=== PATIENT | male | born 1960 | race Caucasian/White ===

== ENCOUNTER 2020-03-06 12:14 | Inpatient (IN) | payer OTHER ==
[~2020-03-06] VITALS: Ht 170.2 cm; Wt 110.2 kg
[2020-03-06 12:15] VITALS: Ht 170.2 cm; Wt 110.2 kg
[2020-03-06 13:26] LABS: PLATELET COUNT 179 x10^3mcL (130-400); RED CELL DISTRIBUTION WIDTH 12.6 % (11.5-14.5)
[2020-03-06 13:33] LABS: BILIRUBIN TOTAL 0.38 mg/dL (0.20-1.00); C REACTIVE PROTEIN 6.1 mg/dL (<=0.9); CALCIUM 7.7 mg/dL (8.5-10.1); CREATININE SERUM 2.6 mg/dL (0.7-1.3); POTASSIUM SERUM 3.9 mmol/L (3.5-5.1)
[2020-03-06 13:34] LABS: TOTAL PROTEIN, SERUM 5.9 g/dL (6.4-8.2)
[2020-03-06] MEDS ORDERED: LOSARTAN POTAS100 M1 PO (15:22)
[2020-03-06] MEDS ORDERED: COR6 PO (15:23)
[2020-03-06] MEDS ORDERED: HYDRALAZINE HCL25 MG PO (15:24)
[2020-03-06] MEDS ORDERED: FERROUS SULFAT325 M2 PO (15:25)
[2020-03-06] MEDS ORDERED: LASIX20 MG PO (15:25)
[2020-03-06] MEDS ORDERED: SYNTHROID25 MCG PO (15:25)
[2020-03-06] MEDS ORDERED: ATORVASTATIN CA40 M1 PO (15:26)
[2020-03-06 15:57] LABS: MAGNESIUM 1.7 mg/dL (1.8-2.4); PHOSPHOROUS 2.7 mg/dL (2.5-4.9)
[2020-03-06 15:59] LABS: CHOLESTEROL/HDL RATIO 2.7
[2020-03-06 16:02] LABS: FREE T4 1.2 ng/dL (0.76-1.46); T4(THYROXINE) 8.5 ug/dL (4.7-13.3)
[2020-03-06 16:05] LABS: T3 TOTAL 0.65 ng/mL
[2020-03-06 16:09] VITALS: BP 169/76
[2020-03-06 16:29] VITALS: BP 169/76
[2020-03-06 22:18] VITALS: BP 141/75
[2020-03-07] VITALS (7 sets, daily range): BP systolic 125–188; BP diastolic 69–84
[2020-03-07 07:42] LABS: PLATELET COUNT 190 x10^3mcL (130-400); RED CELL DISTRIBUTION WIDTH 12.8 % (11.5-14.5)
[2020-03-07 08:04] LABS: BILIRUBIN TOTAL 0.3 mg/dL (0.20-1.00); CALCIUM 7.5 mg/dL (8.5-10.1); CARBON DIOXIDE 18.7 mmol/L (21-32); CREATININE SERUM 2.4 mg/dL (0.7-1.3); POTASSIUM SERUM 3.8 mmol/L (3.5-5.1)
[2020-03-07 08:06] LABS: ALBUMIN 1.9 g/dL (3.4-5.0); TOTAL PROTEIN, SERUM 6.1 g/dL (6.4-8.2)
[2020-03-07 09:57] LABS: BAND NEUTROPHIL 2 % (0-10); SEGMENTED NEUTROPHILS 58 % (37-75)
[2020-03-07 10:00] LABS: MONOCYTE 10 % (0-7); rbc morphology (normal/abnorm) NORMAL (NORMAL)
[2020-03-08 05:43] VITALS: BP 161/73
[2020-03-08 06:39] LABS: PLATELET COUNT 240 x10^3mcL (130-400); RED CELL DISTRIBUTION WIDTH 12.5 % (11.5-14.5)
[2020-03-08 07:11] LABS: BASOPHIL % 0 % (0-2)
[2020-03-08 07:21] LABS: BILIRUBIN DIRECT 0.05 mg/dL (0.0-0.2); BILIRUBIN TOTAL 0.3 mg/dL (0.20-1.00); C REACTIVE PROTEIN 3.7 mg/dL (<=0.9); CALCIUM 7.6 mg/dL (8.5-10.1); CARBON DIOXIDE 17.6 mmol/L (21-32); CREATININE SERUM 2.2 mg/dL (0.7-1.3); POTASSIUM SERUM 3.8 mmol/L (3.5-5.1)
[2020-03-08 07:29] LABS: ALBUMIN 1.8 g/dL (3.4-5.0); TOTAL PROTEIN, SERUM 5.7 g/dL (6.4-8.2)
[2020-03-08 08:37] VITALS: BP 162/85
[2020-03-08 12:06] VITALS: BP 121/79
[2020-03-08 15:31] VITALS: BP 147/70
[2020-03-08 21:00] VITALS: BP 158/69
[2020-03-09 06:30] VITALS: BP 166/78
[2020-03-09 07:34] LABS: BILIRUBIN DIRECT 0.07 mg/dL (0.0-0.2); BILIRUBIN TOTAL 0.3 mg/dL (0.20-1.00)
[2020-03-09 07:37] LABS: TOTAL PROTEIN, SERUM 6.1 g/dL (6.4-8.2)
[2020-03-09 08:00] VITALS: BP 146/67
[2020-03-09 13:12] VITALS: BP 123/81
[2020-03-09 17:10] VITALS: BP 152/74
[2020-03-09 20:06] VITALS: BP 161/77
[2020-03-10 05:17] VITALS: BP 157/78
[2020-03-10 07:37] LABS: BILIRUBIN DIRECT 0.06 mg/dL (0.0-0.2); BILIRUBIN TOTAL 0.2 mg/dL (0.20-1.00)
[2020-03-10 07:39] LABS: TOTAL PROTEIN, SERUM 4.9 g/dL (6.4-8.2)
[2020-03-10 07:40] LABS: ALBUMIN 1.9 g/dL (3.4-5.0)
[2020-03-10 12:25] VITALS: BP 148/74
[2020-03-10 16:20] VITALS: BP 163/74
[2020-03-10 20:05] VITALS: BP 149/79
[2020-03-11 04:28] LABS: AMPHETAMINE QUAL UR NONE DETECTED (See below)
[2020-03-11 04:41] LABS: microscopic required? YES; urine erythrocyte TRACE (NEGATIVE)
[2020-03-11 06:07] VITALS: BP 154/73
[2020-03-11 06:41] LABS: BILIRUBIN DIRECT 0.07 mg/dL (0.0-0.2); BILIRUBIN TOTAL 0.24 mg/dL (0.20-1.00)
[2020-03-11 06:44] LABS: ALBUMIN 1.8 g/dL (3.4-5.0); TOTAL PROTEIN, SERUM 5.4 g/dL (6.4-8.2)
[2020-03-11 08:40] VITALS: BP 161/70
[2020-03-11] MEDS ORDERED: VENTOLIN H0.09 MG/A1 INH (08:57)
[2020-03-11] MEDS ORDERED: FER300 PO (08:58)
[2020-03-11] MEDS ORDERED: DECADRON4 MG PO ×2 (08:59→12:04)
[2020-03-11] MEDS ORDERED: MUCINEX600 MG PO (08:59)
[2020-03-11 12:07] VITALS: BP 156/69
[2020-03-11 12:36] VITALS: BP 156/69
== END 2020-03-11 15:25 | disposition home or self-care (01) | DRG 177 ==
LOC: ED 12:14 → DU 14:00
PROVIDERS: Emergency Medicine; ADMIT Family Medicine; ATTEND Family Medicine
PROC: XW033E5 Introduction of Remdesivir Anti-infective into Peripheral Vein, Percutaneous Approach, New Technology Group 5 (ICD-10-PCS; principal; 2020-03-07)
PROC: XW13325 Transfusion of Convalescent Plasma (Nonautologous) into Peripheral Vein, Percutaneous Approach, New Technology Group 5 (ICD-10-PCS; 2020-03-07)
DX: U07.1 COVID-19 (principal); J12.89 Other viral pneumonia; E43 Unspecified severe protein-calorie malnutrition; N17.0 Acute kidney failure with tubular necrosis; I42.9 Cardiomyopathy, unspecified; N17.9 Acute kidney failure, unspecified; D68.59 Other primary thrombophilia; E11.9 Type 2 diabetes mellitus without complications; I10 Essential (primary) hypertension; E78.5 Hyperlipidemia, unspecified; E83.51 Hypocalcemia; E83.42 Hypomagnesemia; Z79.899 Other long term (current) drug therapy; Z79.891 Long term (current) use of opiate analgesic; Z79.01 Long term (current) use of anticoagulants; Z68.28 Body mass index [BMI] 28.0-28.9, adult
CPT/HCPCS: 36600; 82962; 83880; 84439; 85378; 87804; 90732; G0378; J0456; J0696; J1100; J1644; J3535; J7050; Q0092; U0003-CS